=== PATIENT | male | born 1975 | race Caucasian/White ===

== ENCOUNTER 2018-12-12 09:21 | Emergency (ER) | payer OTHER ==
--- NOTE | 2018-12-12 10:04 | ER Document Report ---
HPI - HPI Time Seen by Provider: 12/12/18 10:03 Notes: Patient is an otherwise healthy 43-year-old male presenting to the emergency department with chief complaint of low back pain that radiates into the right buttocks and down the right leg. He denies any specific injury. He states that he has had a history of a bulging disc in the past. He reports feeling some numbness in his leg but is able to bear weight and ambulate. Patient denies any loss of control of his bowels or bladder, reports able to urinate without difficulty and denies any saddle anesthesia. Past Medical History - General Information source: Patient - Social History Smoking Status: Never Smoker Frequency of alcohol use: None Drug Abuse: None Family History: Reviewed & Not Pertinent - Medical History Medical History: Negative Surgical Hx: Negative - Immunizations Immunizations up to date: Yes Vertical Provider Document - CONSTITUTIONAL Notes: PHYSICAL EXAMINATION: GENERAL: Well-appearing, well-nourished and in no acute distress. HEAD: Atraumatic, normocephalic. EYES: Pupils equal round extraocular movements intact, conjunctiva are normal. ENT: Nares patent NECK: Normal range of motion LUNGS: No respiratory distress Musculoskeletal: Normal range of motion, tenderness to palpation along bilateral lumbar paraspinous areas as well as increased pain to the right lumbar paraspinous area with extension down into the right buttock. Normal motor and sensation distal to area of concern. No vertebral tenderness, step-off or deformity on palpation. NEUROLOGICAL: Normal speech, normal gait. PSYCH: Normal mood, normal affect. SKIN: Warm, Dry, normal turgor, no rashes or lesions noted. Course - Re-evaluation Re-evalutation: Lumbar Spine CT 12/12/18 10:12 IMPRESSION: 1. At L5-S1, posterior disc osteophyte complex central-right paracentral with effacement on the descending right S1 nerve root sleeve. Mild to moderate facet arthrosis and lateral recess narrowing on the right. 2. At L3-L4 and L4-L5, broad-based disc bulges. Patient reports moderate decrease in pain after administration of medications here in the emergency department. Patient will be discharged home with appropriate medications and encouraged to follow-up with either his primary care doctor or a neurosurgeon if not improving over the next week. ED return precautions were explicitly discussed with the patient and the patient verbalizes understanding and agreement with same. Patient ambulated prior to discharge without difficulty. - Vital Signs Vital signs: Temp Pulse Resp BP Pulse Ox 98.3 F 95 16 150/97 H 97 12/12/18 09:29 12/12/18 09:29 12/12/18 09:29 12/12/18 09:29 12/12/18 09:29 Discharge - Discharge Clinical Impression: Bulging lumbar disc Sciatica Qualifiers: Laterality: right Qualified Code(s): M54.31 - Sciatica, right side Condition: Stable Disposition: HOME, SELF-CARE Additional Instructions: Herniated Disc You have a herniated disc. A vertebral disc is a tissue "cushion" between the bones of the spine. When it herniates, a portion bulges out. If it pushes on a nerve, it can cause radiation of pain, numbness, weakness, or tingling in the area served by the affected nerve. Most herniated discs do NOT need surgery. In fact about one-quarter of normal, symptom-free people have at least one herniated disc. Symptoms will usually go away after a few weeks. Rest on a firm surface. Avoid lying on your stomach. If on your back, put a pillow under the knees. If on your side, bend your legs and put a pillow between the knees. Temporarily avoid bending, lifting, and other activity that increases pain. Depending on the severity of symptoms, we may prescribe antiinflammatory medicine such as ibuprofen, corticosteroids, muscle relaxers, or narcotic pain medication. Gentle heat may be used intermittently along the spine. Spinal manipulation or adjustment is usually not recommended for disk herniation. Exercises to strengthen your back and abdominal muscles are prescribed as your symptoms improve. Your doctor will advise you on the proper care at each stage in your recovery. You may be better in a few days -- or healing may take several weeks. Return or call the doctor if you develop severe unrelieved pain, increasing weakness or numbness, or loss of bowel or bladder control. Please take medications as prescribed Take ibuprofen 600 mg every 6 hours. Please follow-up with your primary care provider. Prescriptions: Cyclobenzaprine HCl [Flexeril 10 mg Tablet] 10 mg PO TIDP PRN #25 tab PRN Reason: Oxycodone HCl/Acetaminophen [Percocet 5-325 mg Tablet] 1 tab PO Q4H PRN #16 tablet PRN Reason: Forms: Special Work Note Referrals: HEIKE NAJERA MD [Primary Care Provider] - Follow up as needed
[2018-12-12] MEDS ORDERED: DEXAMETHASONE SOD PHOS INJ 10 MG/1 ML VIAL IM ONE (10:13)
[2018-12-12] MEDS ORDERED: KETOROLAC TROMETHAMINE 60 MG/2 ML SDV IM ONE (10:13)
[2018-12-12] MEDS ORDERED: LIDOCAINE 5% (700 MG) TRANSDERMAL ADH..PATCH TP ONE (10:13)
[2018-12-12] MEDS ORDERED: METHOCARBAMOL 750 MG TABLET PO ONE (10:13)
--- NOTE | 2018-12-12 11:32 | RADIOLOGY REPORT (SQ) ---
EXAM DESCRIPTION: CT LUMBAR SPINE WITHOUT COMPLETED DATE/TIME: 12/12/2018 10:50 am REASON FOR STUDY: low back pain with right buttock pain COMPARISON: None. TECHNIQUE: Axial images acquired through the lumbar spine without intravenous contrast. Images revi ewed with lung, soft tissue and bone windows. Reconstructed coronal and sagittal MPR images reviewed . All images stored on PACS. All CT scanners at this facility use dose modulation, iterative reconstruction, and/or weight based d osing when appropriate to reduce radiation dose to as low as reasonably achievable (ALARA). [facility]: Dose Right [facility]: CareDose [facility]: Dose Right [facility]: Teradose 4D [facility]: Smart [employer] RADIATION DOSE: Exam DLP: 1809.75 mGy-cm LIMITATIONS: None. FINDINGS: SEGMENTATION: Normal. No transitional anatomy. ALIGNMENT: Normal. VERTEBRAL BODIES: No fractures. No dislocation. No acute findings. DISCS: Study limited by lack of intrathecal contrast. At L3- 4 and L4-L5, broad-based disc bulges. At L5-S1 posterior disc osteophyte complex central-right paracentral with effacement on the descendin g right S1 nerve root sleeve. Mild to moderate facet arthrosis and lateral recess narrowing on the r ight. PEDICLES, TRANSVERSE PROCESSES: No fractures. No dislocation. No acute findings. FACETS, POSTERIOR ELEMENTS: No fractures. No dislocation. No spinal stenosis. HARDWARE: None in the spine. VISUALIZED RIBS: No fractures. SOFT TISSUES: No significant or acute finding in adjacent soft tissues. OTHER: No other significant finding. IMPRESSION: 1. At L5-S1, posterior disc osteophyte complex central-right paracentral with effacemen t on the descending right S1 nerve root sleeve. Mild to moderate facet arthrosis and lateral recess narrowing on the right. 2. At L3-L4 and L4-L5, broad-based disc bulges. TECHNICAL DOCUMENTATION: JOB ID: [id number] Quality ID # [id number]: Final reports with documentation of one or more dose reduction techniques (e.g., Au tomated exposure control, adjustment of the mA and/or kV according to patient size, use of iterative reconstruction technique) 2010 [employer]- All Rights Reserved Reading location - IP[facility]workstation name: [email or web address]
[2018-12-12 12:24] VITALS: BP 132/80
== END 2018-12-12 12:29 | disposition home or self-care (01) ==
LOC: ER 09:21
DX: M51.27 Other intervertebral disc displacement, lumbosacral region (principal); M54.31 Sciatica, right side; R20.0 Anesthesia of skin
CPT/HCPCS: 72131; J1885; J3490; J1100; 96372; 99283